=== PATIENT | male | born 1990 | race African-American/Black ===

== ENCOUNTER 2018-01-12 08:59 | Emergency (ER) | payer MEDICAID ==
[~2018-01-12] VITALS: Ht 175.3 cm; Wt 90.9 kg
[2018-01-12 09:02] VITALS: BP 152/69; Ht 175.3 cm; Wt 90.9 kg
[2018-01-12] MEDS ORDERED: NAPROSYN500 MG PO (10:21)
== END 2018-01-12 10:30 | disposition home or self-care (01) ==
LOC: D.ER 08:59
DX: M25.562 Pain in left knee (principal); F17.200 Nicotine dependence, unspecified, uncomplicated

== ENCOUNTER 2019-02-28 17:09 | Emergency (ER) | payer SELFPAY ==
[~2019-02-28] VITALS: Ht 175.3 cm; Wt 100.0 kg
[~2019-02-28 17:09] MED LIST: NAPROSYN500 MG PO
[2019-02-28 17:21] VITALS: Ht 175.3 cm; Wt 100.0 kg
[2019-02-28] MEDS ORDERED: XANAX1 MG PO (18:07)
[2019-02-28 19:01] VITALS: BP 123/64
== END 2019-02-28 19:03 | disposition home or self-care (01) ==
LOC: D.ER 17:09
DX: F41.9 Anxiety disorder, unspecified (principal)

== ENCOUNTER 2019-06-10 21:00 | Emergency (ER) | payer MEDICAID ==
[~2019-06-10] VITALS: Ht 175.3 cm; Wt 100.0 kg
[~2019-06-10 21:00] MED LIST changes: +XANAX1 MG PO
[2019-06-10 21:05] VITALS: Ht 175.3 cm; Wt 100.0 kg
[2019-06-10 23:28] VITALS: BP 125/78
== END 2019-06-10 23:28 | disposition home or self-care (01) ==
LOC: D.ER 21:00
DX: F41.0 Panic disorder [episodic paroxysmal anxiety] (principal); F41.9 Anxiety disorder, unspecified

== ENCOUNTER 2020-10-15 23:49 | Emergency (ER) | payer MEDICAID ==
[~2020-10-15] VITALS: Ht 175.3 cm; Wt 100.0 kg
[2020-10-16 00:02] VITALS: BP 112/83; Ht 175.3 cm; Wt 100.0 kg
[2020-10-16] MEDS ORDERED: DEPAKOTE500 MG PO (00:07)
[2020-10-16] MEDS ORDERED: HYDROCODON-ACE1 EA10 PO (02:08)
[2020-10-16] MEDS ORDERED: NAPROSYN500 MG PO (02:08)
== END 2020-10-16 02:11 | disposition home or self-care (01) ==
LOC: D.ER 23:49
DX: M25.512 Pain in left shoulder (principal)

== ENCOUNTER 2020-11-14 00:02 | Emergency (ER) | payer MEDICAID ==
[~2020-11-14] VITALS: Ht 175.3 cm; Wt 97.7 kg
[~2020-11-14 00:02] MED LIST changes: +DEPAKOTE500 MG PO; +HYDROCODON-ACE1 EA10 PO
[2020-11-14 00:06] VITALS: Ht 175.3 cm; Wt 97.7 kg
[2020-11-14] MEDS ORDERED: HYDROCODON-ACE1 EA10 PO (01:24)
[2020-11-14 02:02] VITALS: BP 161/93
== END 2020-11-14 02:02 | disposition home or self-care (01) ==
LOC: D.ER 00:02
DX: M25.512 Pain in left shoulder (principal); G89.29 Other chronic pain